=== PATIENT | female | born 1985 | race Caucasian/White ===

== ENCOUNTER 2016-09-12 15:34 | Emergency (ER) | payer OTHER ==
[~2016-09-12] VITALS: Ht 154.9 cm; Wt 65.8 kg
[~2016-09-12 15:34] MED LIST: DEPAKOTE DR500 MG PO; PROAIR HFA0.09 MG/Ac IH; RISPERDAL0.5 MG PO
[2016-09-12 15:47] VITALS: BP 144/99
[2016-09-12] MEDS ORDERED: predniSONE 20 MG TAB PO ONE (15:55)
[2016-09-12] MEDS ORDERED: ALBUTEROL 0.083% 2.5 MG/3 ML NEBU INH ONE (15:55)
[2016-09-12] MEDS ORDERED: ALBUTEROL SULFATE/IPRATROPIU 3 ML SOL IH ONE (15:55)
--- NOTE | 2016-09-12 16:10 | NUR ---
RT AT BEDSIDE, ONGOING WITH HHN
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
--- NOTE | 2016-09-12 16:57 | NUR ---
DR ZARAGOZA AT BEDSIDE
[2016-09-12] MEDS ORDERED: KETOROLAC 60 MG/2 ML VIAL IM ONE (17:00)
--- NOTE | 2016-09-12 17:37 | NUR ---
Patient discharged with v/s stable. Written and verbal after care instructions given and explained. Patient alert, oriented and verbalized understanding of instructions. Ambulatory with steady gait. All questions addressed prior to discharge. ID band removed. Patient advised to follow up with PMD. Rx of MOTRIN,PREDNISONE AND NORCO given. Patient educated on indication of medication including possible reaction and side effects. ADVISED PT TO AVOID STRENOUS ACTIVITIES AND ENCOURAGED FLUID INTAKE.Opportunity to ask questions provided and answered.
[2016-09-12 17:38] VITALS: BP 128/69
== END 2016-09-12 17:37 | disposition home or self-care (01) ==
LOC: MED 15:34
DX: S20.212A Contusion of left front wall of thorax, initial encounter (principal); J45.901 Unspecified asthma with (acute) exacerbation; F17.200 Nicotine dependence, unspecified, uncomplicated; X58.XXXA Exposure to other specified factors, initial encounter; Y93.89 Activity, other specified; Y92.89 Other specified places as the place of occurrence of the external cause; Y99.8 Other external cause status
CPT/HCPCS: 94640; 96372; 99283; J1885; J7512; J7613; J7620

== ENCOUNTER 2016-11-30 01:15 | Emergency (ER) | payer OTHER ==
[~2016-11-30] VITALS: Ht 157.5 cm; Wt 72.1 kg
[~2016-11-30 01:15] MED LIST changes: +ALBU-136 IH; -DEPAKOTE DR500 MG PO; +DIVA500E13 PO; -PROAIR HFA0.09 MG/Ac IH; +RISP0.5T PO; -RISPERDAL0.5 MG PO
--- NOTE | 2016-11-30 01:15 | NUR ---
Dr. العراقي evaluating patient
[2016-11-30 01:17] VITALS: BP 151/57
--- NOTE | 2016-11-30 01:58 | NUR ---
PT TAKEN TO BED 4
--- NOTE | 2016-11-30 02:22 | NUR ---
31Y/F BIBA TO ED WITH C/O ETOH. DENIES N/V/D; SKIN IS PINK/WARM/DRY; AAOX4 WITH EVEN AND STEADY GAIT; LUNGS CLEAR BL; HR EVEN AND REGULAR; PT DENIES ANY FEVER, CP, SOB, OR COUGH AT THIS TIME; PATIENT STATES PAIN OF 0/10 AT THIS TIME; VSS; PATIENT POSITIONED FOR COMFORT; HOB ELEVATED; BEDRAILS UP X2; BED DOWN. ER MD MADE AWARE OF PT STATUS.
--- NOTE | 2016-11-30 04:26 | NUR ---
Patient appears to be resting comfortably in bed. Vital Signs within normal limits. Respirations even and unlabored.
[2016-11-30 05:00] VITALS: BP 132/92
--- NOTE | 2016-11-30 05:02 | NUR ---
Pupils equal and reactive to light bilaterally. No facial droop noted. No smile deficit noted. Speech normal for patient. Patient is alert and oriented to person, place, time and event. Bilateral hand seed technician equal. Bilateral foot push equal. CALLED PT MOM, SHE ASKED FOR [employer] TO TAKE HER HOME WHERE CALL MOM WAITING FOR HER AT HOME. [employer] CALLED ETA 35MINS.
--- NOTE | 2016-11-30 05:15 | NUR ---
Patient discharged with v/s stable. Written and verbal after care instructions given and explained. Patient alert, oriented and verbalized understanding of instructions. Ambulatory with to car. All questions addressed prior to discharge. ID band removed. Patient advised to follow up with PMD.NO Rx given. Patient educated on indication of medication including possible reaction and side effects. Opportunity to ask questions provided and answered. YELLOW CAB HERE PT AMB W/O ASST TO CAB AAOX4.
== END 2016-11-30 05:15 | disposition home or self-care (01) ==
LOC: MED 01:15
DX: F10.129 Alcohol abuse with intoxication, unspecified (principal); J45.909 Unspecified asthma, uncomplicated; Y90.9 Presence of alcohol in blood, level not specified
CPT/HCPCS: 99283

== ENCOUNTER 2017-06-25 18:10 | Emergency (ER) | payer OTHER ==
[~2017-06-25] VITALS: Ht 160 cm; Wt 70.3 kg
--- NOTE | 2017-06-25 18:06 | NUR ---
Patient was BIBA and taken to bed 03 via gurney.
[~2017-06-25 18:10] MED LIST changes: -DIVA500E13 PO; +DIVA500E2 PO; -RISP0.5T PO; +RISP0.5T3 PO
--- NOTE | 2017-06-25 18:10 | NUR ---
32 yo female bib ems from home for sob hx of asthma. DENIES N/V/D; SKIN IS PINK/WARM/DRY; AAOX4 WITH EVEN AND STEADY GAIT; LUNGS CLEAR BL; HR EVEN AND REGULAR; PT DENIES ANY FEVER, CP, OR COUGH AT THIS TIME; PATIENT STATES PAIN OF 5/10 AT THIS TIME; VSS; PATIENT POSITIONED FOR COMFORT; HOB ELEVATED; BEDRAILS UP X2; BED DOWN. ER MD MADE AWARE OF PT STATUS.
[2017-06-25 18:11] VITALS: BP 146/113
--- NOTE | 2017-06-25 18:23 | NUR ---
DR WARD EVALUATING AAO PT AT BEDSIDE
[2017-06-25] MEDS ORDERED: predniSONE 20 MG TAB PO ONE (18:25)
[2017-06-25] MEDS ORDERED: ALBUTEROL 0.083% 2.5 MG/3 ML NEBU INH ONE (18:25)
[2017-06-25] MEDS ORDERED: IPRATROPIUM 0.02% 0.5 MG/2.5 ML NEBU INH ONE (18:25)
--- NOTE | 2017-06-25 18:30 | NUR ---
Respiratory Therapist at bedside for respiratory intervention.
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
[2017-06-25 19:23] VITALS: BP 128/88
--- NOTE | 2017-06-25 19:23 | NUR ---
Patient discharged with v/s stable. Written and verbal after care instructions given and explained. Patient alert, oriented and verbalized understanding of instructions. Ambulatory with steady gait. All questions addressed prior to discharge. ID band removed. Patient advised to follow up with PMD. Rx of PREDNISONE, IBUPROFEN given. Patient educated on indication of medication including possible reaction and side effects. Opportunity to ask questions provided and answered.
== END 2017-06-25 19:23 | disposition home or self-care (01) ==
LOC: MED 18:10
DX: J45.901 Unspecified asthma with (acute) exacerbation (principal); R25.2 Cramp and spasm; F17.210 Nicotine dependence, cigarettes, uncomplicated; Z79.899 Other long term (current) drug therapy
CPT/HCPCS: 94640; 99283; J7512; J7613; J7644

== ENCOUNTER 2019-03-16 17:34 | Emergency (ER) | payer OTHER ==
[~2019-03-16] VITALS: Ht 154.9 cm; Wt 63.5 kg
[2019-03-16 17:35] VITALS: BP 120/84
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
[2019-03-16] MEDS ORDERED: ONDANSETRON 4 MG/2 ML VIAL IVP ONE (17:55)
[2019-03-16] MEDS ORDERED: NACL 0.9% 1,000 ML IV ONE (17:55)
--- NOTE | 2019-03-16 17:56 | NUR ---
DR MCCANN AT BEDSIDE FOR PT EVALUATION
[2019-03-16 18:30] LABS: BARBITURATE, URINE NEG. ng/ml (NEG <=200); BENZODIAZEPINE, URINE NEG. ng/mL (NEG <=200); CANNABINOID, URINE NEG. ng/mL (NEG <=50); COCAINE, URINE NEG. ng/mL (NEG <=300); OPIATE, URINE NEG. ng/mL (NEG <=2000); PHENCYCLIDINE SCREEN,URINE NEG. ng/mL (NEG <=25)
[2019-03-16 18:43] LABS: BASOPHILS % (AUTO) 0.5 % (0.0-2.0); EOSINOPHILS # (AUTO) 0.3 K/uL (0-0.4); EOSINOPHILS % (AUTO) 2.9 % (0.0-4.0); HEMATOCRIT 46.9 % (36-48); HEMOGLOBIN 15.7 g/dL (12.0-16.0); LYMPHOCYTES # (AUTO) 2.7 K/uL (2.5-16.5); MEAN CORPUSCULAR HEMOGLOBIN 30 pg (27-31); MEAN CORPUSCULAR HGB CONC 33 g/dL (33-37); MEAN CORPUSCULAR VOLUME 88.4 fL (80-94); MONOCYTES # (AUTO) 0.5 K/uL (0.8-1.0); MONOCYTES % (AUTO) 5.2 % (1.7-9.3); NEUTROPHILS # (AUTO) 5.3 K/uL (1.8-7.7); NEUTROPHILS % (AUTO) 60.4 % (42.2-75.2); PLATELET COUNT (AUTO) 219 K/uL (140-450); RED BLOOD CELL COUNT(AUTO) 5.31 MIL/uL (4.20-5.40); RED CELL DISTRIBUTION WIDTH 13.8 % (11.6-13.7); WHITE BLOOD COUNT (AUTO) 8.8 K/uL (4.8-10.8)
[2019-03-16 18:51] LABS: ANION GAP 13.4 (8-16); CARBON DIOXIDE 27.4 mmol/L (21-32); CHLORIDE 108 mmol/L (98-107); CREATININE 0.7 mg/dL (0.6-1.3); GFR ARICAN-AMERICAN 122 mL/min (>90); GLUCOSE 87 mg/dL (74-106); POTASSIUM 3.8 mmol/L (3.5-5.1); SODIUM SERUM 145 mmol/L (136-145); UREA NITROGEN, BLOOD 14 mg/dL (7-18)
[2019-03-16 18:58] LABS: ALBUMIN 3.9 g/dL (3.4-5.0); ASPARTATE AMINOTRANSFERASE 16 U/L (15-37); TOTAL BILIRUBIN 0.4 mg/dL (0.0-1.0)
[2019-03-16 18:59] LABS: ACETAMINOPHEN < 0.5 ug/ml (10-30); SALICYLATE < 2.8 mg/dL (2.8-20.0)
--- NOTE | 2019-03-16 19:14 | NUR ---
Pt report given to BEVERLY PIMENTEL. Transfer of care at this time.
--- NOTE | 2019-03-16 19:15 | NUR ---
RECEIVED REPORT FROM BEVERLY LAND. TRANSFER OF CARE AT THIS TIME.
--- NOTE | 2019-03-16 19:17 | NUR ---
PT IS HOARSE; WHEEZING WHILE TALKING. LUNGS CTA. SPO2 97% ON RA. DR. MCCANN MADE AWARE; STATES PT MEDICALLY CLEAR FOR DISCHARGE.
[2019-03-16 19:26] VITALS: BP 129/78
== END 2019-03-16 19:26 | disposition home or self-care (01) ==
LOC: MED 17:34
DX: F10.129 Alcohol abuse with intoxication, unspecified (principal); J45.909 Unspecified asthma, uncomplicated; Z79.899 Other long term (current) drug therapy
CPT/HCPCS: 36415; 80053; 80305; 84703; 85025; 96361; 96374; 99283; G0480; G0482; J2405; J7030

== ENCOUNTER 2019-05-13 13:15 | Emergency (ER) | payer OTHER ==
[~2019-05-13] VITALS: Ht 157.5 cm; Wt 58.1 kg
--- NOTE | 2019-05-13 13:19 | NUR ---
Patient ambulated to bed 11. RN evaluating patient at bedside.
[2019-05-13 13:27] VITALS: BP 144/95
[2019-05-13] MEDS ORDERED: ALBUTEROL 0.083% 2.5 MG/3 ML NEBU INH ONE (13:40)
[2019-05-13] MEDS ORDERED: ALBUTEROL SULFATE/IPRATROPIU 3 ML SOL IH ONE (13:40)
[2019-05-13] MEDS ORDERED: predniSONE 20 MG TAB PO ONE (13:40)
--- NOTE | 2019-05-13 13:42 | NUR ---
PATIENT PRESENTS TO ED WITH PT C/O SOB AND HACKING COUGH X 1 WEEK, VOMITTING X 3 DAYS, AND NAUSEA. AUDIBLE WHEEZES NOTED UPON INSPIRATION AND EXPIRATION. PT REPORTS USING INHALER WITH NO RELIEF.SKIN IS PINK/WARM/DRY; AAOX4 WITH EVEN AND STEADY GAIT; PT DENIES ANY FEVER AT THIS TIME; PATIENT STATES PAIN OF 5/10 AT THIS TIME; VSS; PATIENT POSITIONED FOR COMFORT; HOB ELEVATED; BEDRAILS UP X2; BED DOWN. ER MD MADE AWARE OF PT STATUS. HX: ASTHMA, SMOKER (1 PACK A DAY) SABINA
--- NOTE | 2019-05-13 13:48 | NUR ---
RT AT BEDSIDE
--- NOTE | 2019-05-13 14:02 | NUR ---
Dr. Tapia evaluating patient at bedside.
[2019-05-13] MEDS ORDERED: KETOROLAC 60 MG/2 ML VIAL IM ONE (14:10)
[2019-05-13 14:41] VITALS: BP 144/95
--- NOTE | 2019-05-13 14:43 | NUR ---
Patient discharged with v/s stable. Written and verbal after care instructions given and explained. Patient alert, oriented and verbalized understanding of instructions. Ambulatory with steady gait. All questions addressed prior to discharge. ID band removed. Patient advised to follow up with PMD. Rx of prednisone, albuterol, and motrin given. Patient educated on indication of medication including possible reaction and side effects. Opportunity to ask questions provided and answered.
== END 2019-05-13 14:43 | disposition home or self-care (01) ==
LOC: MED 13:15
DX: J45.909 Unspecified asthma, uncomplicated (principal); Z79.899 Other long term (current) drug therapy; F17.210 Nicotine dependence, cigarettes, uncomplicated
CPT/HCPCS: 94640; 96372; 99283; J1885; J7512; J7613; J7620

== ENCOUNTER 2019-09-30 20:11 | Emergency (ER) | payer OTHER ==
[~2019-09-30] VITALS: Ht 154.9 cm; Wt 59.0 kg
--- NOTE | 2019-09-30 20:13 | NUR ---
PT CHRIS POSADAS. TAKEN TO CHAIR D
[2019-09-30 20:16] VITALS: BP 180/100
--- NOTE | 2019-09-30 20:23 | NUR ---
BROUGHT IN BY EMS FROM HOME COUGHING FEVER FATIGUED X 4-5 DAYS--WORSE TODAY NOTED WITH MUFFLED COUGH WITH SUPRACLAVICULAR ACCESSORY MUSCLE USE---ADMITS TO CONTINUES SMOKING
--- NOTE | 2019-09-30 20:25 | NUR ---
PT MOVED TO ER BED 4
--- NOTE | 2019-09-30 20:49 | NUR ---
PT TAKEN TO XRAY
--- NOTE | 2019-09-30 20:58 | NUR ---
Dr. Burnette examining patient.
[2019-09-30] MEDS: ALBUTEROL SULFATE/IPRATROPIU 3 ML SOL IH ONE ×2 (21:06→22:56)
[2019-09-30] MEDS: predniSONE 20 MG TAB PO ONE (21:09)
--- NOTE | 2019-09-30 21:25 | NUR ---
BREATHNG TX AND MEDS GIVEN. PT STILL HAS AUDIBLE WHEEZES. PT STATES THAT SHE FEELS LIKE SHE CAN BREATHE BETTER.
[2019-09-30 22:04] LABS: BASOPHILS % (AUTO) 0.5 % (0.0-2.0); EOSINOPHILS # (AUTO) 0.1 K/uL (0-0.4); EOSINOPHILS % (AUTO) 1.4 % (0.0-4.0); HEMATOCRIT 43.6 % (36-48); HEMOGLOBIN 14.7 g/dL (12.0-16.0); LYMPHOCYTES # (AUTO) 3.5 K/uL (2.5-16.5); LYMPHOCYTES % (AUTO) 37.2 % (20.5-51.1); MEAN CORPUSCULAR HEMOGLOBIN 30 pg (27-31); MEAN CORPUSCULAR HGB CONC 34 g/dL (33-37); MEAN CORPUSCULAR VOLUME 89.3 fL (80-94); MONOCYTES # (AUTO) 0.7 K/uL (0.8-1.0); MONOCYTES % (AUTO) 7.6 % (1.7-9.3); NEUTROPHILS % (AUTO) 53.3 % (42.2-75.2); PLATELET COUNT (AUTO) 206 K/uL (140-450); RED BLOOD CELL COUNT(AUTO) 4.88 MIL/uL (4.20-5.40); RED CELL DISTRIBUTION WIDTH 13.1 % (11.6-13.7); WHITE BLOOD COUNT (AUTO) 9.5 K/uL (4.8-10.8)
[2019-09-30 22:26] LABS: ALBUMIN 4.1 g/dL (3.4-5.0); ANION GAP 8.6 (8-16); CARBON DIOXIDE 34.8 mmol/L (21-32); CREATININE 0.6 mg/dL (0.6-1.3); POTASSIUM 3.4 mmol/L (3.5-5.1); TOTAL BILIRUBIN 0.6 mg/dL (0.0-1.0)
[2019-09-30 23:31] VITALS: BP 180/100
== END 2019-09-30 23:31 | disposition home or self-care (01) ==
LOC: MED 20:11
DX: J45.901 Unspecified asthma with (acute) exacerbation (principal); F17.200 Nicotine dependence, unspecified, uncomplicated; Z79.899 Other long term (current) drug therapy
CPT/HCPCS: 36415; 71046; 80053; 85025; 87804; 94640; 99284; J7512

== ENCOUNTER 2023-02-26 18:55 | Emergency (ER) | payer OTHER ==
[~2023-02-26] VITALS: Ht 157.5 cm; Wt 73.9 kg
[2023-02-26] VITALS (7 sets, daily range): BP systolic 147–160; BP diastolic 97–111; PULSE 76–85; RESP 19–24; TEMP 98.3; O2SAT 94–100
[~2023-02-26 18:55] MED LIST changes: +ALBU-118 IH; -ALBU-136 IH
--- NOTE | 2023-02-26 19:06 | NUR ---
Patient ambulated to bed 7.
--- NOTE | 2023-02-26 19:13 | NUR ---
Report given to TERESITA Taylor for transfer of care.
[2023-02-26] MEDS ORDERED: ALBUTEROL 0.083% 2.5 MG/3 ML NEBU INH ONE ×3 (19:23→21:45)
--- NOTE | 2023-02-26 19:33 | NUR ---
38 YO F BIB SELF C/O S.O.B X TODAY. PT STATES HX OF ASTHMA AND USES INHALER. PT STATES INHALER USE IS NOT RELIEVING SHORTNESS OF BREATH. WHEEZING NOTED. PT RECEIVING BREATHING TREATMENT NOW. CALL LIGHT WITHIN REACH. PT SITTING IN CHAIR AT BEDSIDE. NKDA PMHX: ASTHMA
--- NOTE | 2023-02-26 19:34 | NUR ---
RT AT BEDSIDE RECEIVING BREATHING TREATMENT.
[2023-02-26] MEDS ORDERED: ALBUTEROL SULFATE/IPRATROPIU 3 ML SOL IH ONE ×2 (19:50→19:55)
[2023-02-26] MEDS ORDERED: predniSONE 20 MG TAB PO ONE (20:05)
[2023-02-26] MEDS ORDERED: IPRATROPIUM 0.02% 0.5 MG/2.5 ML NEBU INH ONE (21:45)
--- NOTE | 2023-02-26 22:38 | NUR ---
PT SITTING IN BEDSIDE CHAIR AND HAS NO S/S PAIN OR DISTRESS. PT CONTINUES TO HAVE MILD WHEEZING WITH SPO2 100% RA. CALL LIGHT WITHIN REACH.
[2023-02-26] MEDS ORDERED: PRED20TA5 PO (23:13)
--- NOTE | 2023-02-26 23:46 | NUR ---
Patient discharged with v/s stable. Written and verbal after care instructions given and explained. Patient alert, oriented and verbalized understanding of instructions. Ambulatory with steady gait. All questions addressed prior to discharge. ID band removed. Patient advised to follow up with PMD. Rx of prednisone given. Opportunity to ask questions provided and answered.
== END 2023-02-26 23:46 | disposition home or self-care (01) ==
LOC: MED 18:55
DX: S63.592A Other specified sprain of left wrist, initial encounter (principal); J45.901 Unspecified asthma with (acute) exacerbation; F17.210 Nicotine dependence, cigarettes, uncomplicated; Z71.6 Tobacco abuse counseling; X58.XXXA Exposure to other specified factors, initial encounter; Y93.89 Activity, other specified; Y92.89 Other specified places as the place of occurrence of the external cause; Y99.8 Other external cause status
CPT/HCPCS: 73110; 94640; 99283; J7512; J7613; J7644; Q0092

== ENCOUNTER 2024-04-20 18:45 | Emergency (ER) | payer OTHER ==
[~2024-04-20] VITALS: Ht 162.6 cm; Wt 68.0 kg
[~2024-04-20 18:45] MED LIST changes: +PRED20TA5 PO
[2024-04-20 18:49] VITALS: BP 146/84; PULSE 90; RESP 16; TEMP 98.5; O2SAT 98
[2024-04-20] MEDS: ALBUTEROL SULFATE/IPRATROPIU 3 ML SOL IH ONE (19:04)
[2024-04-20] MEDS: predniSONE 20 MG TAB PO ONE (19:06)
[2024-04-20 19:07] VITALS: BP 120/88; PULSE 89; RESP 16; TEMP 98.5
[2024-04-20] MEDS: ONDANSETRON 4 MG ODT PO ONE (19:21)
[2024-04-20 19:23] VITALS: O2SAT 97
[2024-04-20] MEDS ORDERED: ALBU0.0912 IH (20:48)
[2024-04-20] MEDS ORDERED: ONDA-188 SL (20:48)
[2024-04-20] MEDS ORDERED: FAMO-92 PO (20:48)
[2024-04-20] MEDS ORDERED: PRED20TA5 PO (20:48)
== END 2024-04-20 20:54 | disposition home or self-care (01) ==
LOC: MED 18:45
DX: J45.901 Unspecified asthma with (acute) exacerbation (principal); K21.9 Gastro-esophageal reflux disease without esophagitis; R03.0 Elevated blood-pressure reading, without diagnosis of hypertension; Z79.899 Other long term (current) drug therapy
CPT/HCPCS: 71045; 94640; 99283; J7512; Q0162